=== PATIENT | male | born 1985 | race Caucasian/White ===

== ENCOUNTER 2018-03-25 16:48 | Emergency (ER) | payer MEDICAID ==
[2018-03-25] MEDS ORDERED: Sodium Chloride 0.9% 10 ML Syringe FLUSH PRN (17:24)
[2018-03-25] MEDS ORDERED: Dextrose 5%-Lactated Ringers 1,000 ML IV SCH (17:30)
--- NOTE | 2018-03-25 17:54 | EDM.PDOC ---
ED HPI GENERAL MEDICAL PROBLEM - General Chief Complaint: Cardiovascular Problem Stated Complaint: WEAK AND DIZZY Time Seen by Provider: 03/25/18 17:35 Source of Information: Reports: Patient History Limitations: Reports: No Limitations - History of Present Illness INITIAL COMMENTS - FREE TEXT/NARRATIVE: Michael comes into [facility] ED with a 1 hour hx of dizziness ie lt headiness. Sxs occurred while sitting on the couch. There is no headache, chest pain or SOB. He has been on a keto diet for 4 days. He feels hydrated, drinking 4-5 glasses of water today. He is on no prescription meds, no nausea, vomiting, diarrhea or polyurina. He is relocated to [place] from [place] where he is living with a cousin and looking for work. - Related Data Allergies Allergy/AdvReac Type Severity Reaction Status Date / Time No Known Allergies Allergy Verified 03/25/18 17:30 Home Meds: Home Meds NK [No Known Home Meds] 03/25/18 [History] Past Medical History Genitourinary History: Reports: Renal Calculus ED ROS GENERAL - Review of Systems Review Of Systems: See Below Constitutional: Reports: No Symptoms, Malaise HEENT: Reports: No Symptoms Respiratory: Reports: No Symptoms Cardiovascular: Reports: Blood Pressure Problem Endocrine: Reports: No Symptoms GI/Abdominal: Reports: No Symptoms : Reports: No Symptoms Musculoskeletal: Reports: No Symptoms Skin: Reports: No Symptoms Neurological: Reports: Dizziness, Weakness Psychiatric: Reports: Anxiety Hematologic/Lymphatic: Reports: No Symptoms Immunologic: Reports: No Symptoms ED EXAM, GENERAL - Physical Exam Exam: See Below Exam Limited By: No Limitations General Appearance: Alert, WD/WN, No Apparent Distress, Anxious Eye Exam: Bilateral Eye: EOMI, Normal Inspection, PERRL Ears: Normal External Exam Nose: Normal Inspection Throat/Mouth: Normal Inspection, Normal Oropharynx Head: Normocephalic Neck: Normal Inspection, Supple, Non-Tender, Full Range of Motion Respiratory/Chest: Lungs Clear Cardiovascular: No Murmur, Tachycardia GI/Abdominal: Normal Bowel Sounds, Soft, Non-Tender, No Organomegaly, No Distention, No Mass (Male) Exam: Deferred Rectal (Males) Exam: Deferred Back Exam: Normal Inspection Extremities: Normal Inspection Neurological: Oriented, CN II-XII Intact, Normal Cognition, No Motor/Sensory Deficits Psychiatric: Normal Affect, Anxious Skin Exam: Warm, Diaphoretic Lymphatic: No Adenopathy Course - Vital Signs Text/Narrative:: Following assessment, an IV was started in the RUE and administered 1L of NS and Ativan 1 mg IV. There was improvment in sxs within 30 minutes. VSS were stable at time of discharge. Last Recorded V/S: Last Vital Signs Temp Pulse Resp 17 03/25/18 18:52 BP 128/64 03/25/18 18:52 Pulse Ox 100 03/25/18 18:52 - Orders/Labs/Meds Orders: Active Orders 24 hr Category Date Time Status EKG Documentation Completion [RC] ASDIRECTED Care 03/25/18 17:25 Active UA W/MICROSCOPIC [URIN] Stat Lab 03/25/18 17:24 Ordered Dextrose 5%-Lactated Ringers 1,000 ml Med 03/25/18 17:30 Active IV ASDIRECTED Sodium Chloride 0.9% [Saline Flush] Med 03/25/18 17:24 Active 10 ml FLUSH ASDIRECTED PRN Peripheral IV Insertion Adult [OM.PC] Routine Oth 03/25/18 17:24 Ordered EKG 12 Lead [EK] Routine Ther 03/25/18 17:24 Ordered Medication Orders Dextrose/Lactated Ringer's (Dextrose 5%-Lactated Ringers) 1,000 mls @ 999 mls/ hr IV ASDIRECTED [place] Last Admin: 03/25/18 17:31 Dose: 999 mls/hr Sodium Chloride (Saline Flush) 10 ml FLUSH ASDIRECTED PRN PRN Reason: Keep Vein Open Last Admin: 03/25/18 17:31 Dose: 10 ml Labs: Laboratory Tests 03/25/18 03/25/18 03/25/18 Range/Units 17:24 17:35 17:35 WBC 10.5 (4.5-12.0) X10-3/uL RBC 5.50 (4.30-5.75) x10(6)uL Hgb 16.5 H (11.5-15.5) g/dL Hct 48.2 (30.0-51.3) % MCV 87.6 (80-96) fL MCH 30.0 (27.7-33.6) pg MCHC 34.3 (32.2-35.4) g/dL RDW 12.4 (11.5-15.5) % Plt Count 268 (125-369) X10(3)uL MPV 8.7 (7.4-10.4) fL Neut % (Auto) 77.5 (46-82) % Lymph % (Auto) 13.5 (13-37) % Sullivan % (Auto) 7.9 (4-12) % Eos % (Auto) 1 (1.0-5.0) % Baso % (Auto) 0 (0-2) % Neut # (Auto) 8.2 (1.6-8.3) # Lymph # (Auto) 1.4 (0.6-5.0) # Sullivan # (Auto) 0.8 (0.0-1.3) # Eos # (Auto) 0.1 (0.0-0.8) # Baso # (Auto) 0.0 (0.0-0.2) # Sodium 134 L (135-145) mmol/L Potassium 3.5 (3.5-5.3) mmol/L Chloride 98 L (100-110) mmol/L Carbon Dioxide 25 (21-32) mmol/L BUN 12 (7-18) mg/dL Creatinine 1.0 (0.70-1.30) mg/dL Est Cr Clr Drug Dosing TNP Estimated GFR (MDRD) > 60 (>60) BUN/Creatinine Ratio 12.0 (9-20) Glucose 203 H (80-116) mg/dL Calcium 9.3 (8.6-10.2) mg/dL Total Bilirubin 1.1 (0.1-1.3) mg/dL AST 21 (5-25) IU/L ALT 45 H (12-36) U/L Alkaline Phosphatase 93 (56-112) IU/L Total Protein 7.9 (6.0-8.0) g/dL Albumin 3.9 (3.5-5.2) g/dL Globulin 4.0 g/dL Albumin/Globulin Ratio 1.0 Urine Color Yellow (YELLOW) Urine Appearance Clear (CLEAR) Urine pH 8.0 H (5.0-6.5) Ur Specific [place] 1.015 (1.010-1.025) Urine Protein Negative (NEGATIVE) mg/dL Urine Glucose (UA) >1000 H (NEGATIVE) mg/dL Urine Ketones 150 H (NEGATIVE) mg/dL Urine Occult Blood Negative (NEGATIVE) Urine Nitrite Negative (NEGATIVE) Urine Bilirubin Negative (NEGATIVE) Urine Urobilinogen Normal (NEGATIVE) mg/dL Ur Leukocyte Esterase Negative (NEGATIVE) Urine RBC Not seen (0) Urine WBC 0-5 (0) Ur Squamous Epith Cells Few H (NS,R,O) Urine Bacteria Few H (NS) Meds: Medications Generic Name Dose Route Start Last Admin Trade Name Freq PRN Reason Stop Dose Admin Dextrose/Lactated Ringer's 1,000 mls @ 999 mls/hr 03/25/18 17:30 03/25/18 17: 31 Dextrose 5%-Lactated Ringers IV 999 mls/hr ASDIRECTED [place] Administration Sodium Chloride 10 ml 03/25/18 17:24 03/25/18 17:31 Saline Flush FLUSH 10 ml ASDIRECTED PRN Administration Keep Vein Open Discontinued Medications Generic Name Dose Route Start Last Admin Trade Name Freq PRN Reason Stop Dose Admin Lorazepam 1 mg 03/25/18 17:58 03/25/18 18:08 Ativan IVPUSH 03/25/18 17:59 1 mg ONETIME ONE Administration Departure - Departure Time of Disposition: 19:07 Disposition: Home, Self-Care 01 Condition: Good Clinical Impression: Orthostatic hypotension, Generalized anxiety disorder with panic attacks Referrals: PCP,None [Primary Care Provider] - Forms: ED Department Discharge - Problem List & Annotations (1) Orthostatic hypotension SNOMED Code(s): 48365809 Code(s): I95.1 - ORTHOSTATIC HYPOTENSION Status: Acute Current Visit: Yes Annotation/Comment:: Hold ketogenic diet, and maintain hydration. (2) Generalized anxiety disorder with panic attacks SNOMED Code(s): 13494353 Code(s): F41.1 - GENERALIZED ANXIETY DISORDER; F41.0 - PANIC DISORDER [ EPISODIC PAROXYSMAL ANXIETY] Status: Acute Current Visit: Yes Annotation/ Comment:: Samm needs to establish with a PCP or provider to manage YOLIE. - Problem List Review Problem List Initiated/Reviewed/Updated: Yes - My Orders Last 24 Hours: My Active Orders 03/25/18 17:24 UA W/MICROSCOPIC [URIN] Stat Sodium Chloride 0.9% [Saline Flush] 10 ml FLUSH ASDIRECTED PRN Peripheral IV Insertion Adult [OM.PC] Routine EKG 12 Lead [EK] Routine 03/25/18 17:25 EKG Documentation Completion [RC] ASDIRECTED 03/25/18 17:30 Dextrose 5%-Lactated Ringers 1,000 ml IV ASDIRECTED - Assessment/Plan Last 24 Hours: My Active Orders 03/25/18 17:24 UA W/MICROSCOPIC [URIN] Stat Sodium Chloride 0.9% [Saline Flush] 10 ml FLUSH ASDIRECTED PRN Peripheral IV Insertion Adult [OM.PC] Routine EKG 12 Lead [EK] Routine 03/25/18 17:25 EKG Documentation Completion [RC] ASDIRECTED 03/25/18 17:30 Dextrose 5%-Lactated Ringers 1,000 ml IV ASDIRECTED Plan: Follow up with PCP or MH provider.
[2018-03-25] MEDS ORDERED: LORazepam 2 MG/ML SDV IVPUSH ONE (17:58)
== END 2018-03-25 19:18 | disposition home or self-care (01) ==
LOC: FB.ED 16:48
DX: I95.1 Orthostatic hypotension (principal); F41.0 Panic disorder [episodic paroxysmal anxiety]
CPT/HCPCS: 36415; 80053; 81001; 85025; 93005; 96365; 96366; 96375; 99285; J2060; J7042; J7050